=== PATIENT | male | born 1955 | race Caucasian/White ===

== ENCOUNTER 2018-07-09 17:15 | Emergency (ER) | payer BC ==
[2018-07-09 18:12] LABS: BASO # 0.1 10^3/uL (0.0-0.2); EOS # 0.2 10^3/uL (0.0-0.50); EOS % 1.3 % (0.0-3.0); HEMATOCRIT 41.4 % (42.0-52.0); HEMOGLOBIN 13.6 g/dl (13.5-17.5); IMMATURE GRANULOCYTE % 0.4 % (0-3.0); LYMPH # 0.8 10^3/uL (1.5-4.5); LYMPH % 7.1 % (24.0-44.0); MEAN CORPUSCULAR HEMOGLOBIN 29.7 pg (27.0-33.0); MEAN CORPUSCULAR HGB CONC 32.9 g/dl (32.0-36.5); MEAN CORPUSCULAR VOLUME 90.4 fl (80.0-96.0); MONO # 0.6 10^3/uL (0.0-0.8); MONO % 4.9 % (0.0-5.0); NEUTROPHILS # 9.5 10^3/uL (1.8-7.7); NEUTROPHILS % 85.3 % (36.0-66.0); PLATELET COUNT, AUTOMATED 226 10^3/uL (150-450); RED BLOOD COUNT 4.58 10^6/uL (4.30-6.10); RED CELL DISTRIBUTION WIDTH 13.9 % (11.5-14.5); WHITE BLOOD COUNT 11.2 10^3/uL (4.0-10.0)
[2018-07-09 18:15] LABS: KETONE, URINE AUTO RFX NEGATIVE (NEGATIVE); LEUKOCYTE ESTERASE UR AUTO RFX NEGATIVE (NEGATIVE); MUCUS, URINE RFX SMALL (NEGATIVE); NITRITE, URINE AUTO RFX NEGATIVE (NEGATIVE); RBC, URINE AUTO RFX 3 /HPF (0-3); SPECIFIC GRAVITY UR AUTO RFX 1.013 (1.002-1.035); SQUAM EPITHELIAL CELL UR AURFX 0 /HPF (0-6); WBC, URINE AUTO RFX 0 /HPF (0-3)
[2018-07-09 18:39] LABS: ANION GAP 7 MEQ/L (8-16); BLOOD UREA NITROGEN 17 MG/DL (7-18); CALCIUM LEVEL 9.2 MG/DL (8.8-10.2); CARBON DIOXIDE LEVEL 25 MEQ/L (21-32); CHLORIDE LEVEL 107 MEQ/L (98-107); CREATININE FOR GFR 0.84 MG/DL (0.70-1.30); GLOMERULAR FILTRATION RATE > 60.0 (>49); GLUCOSE, FASTING 106 MG/DL (70-100); POTASSIUM SERUM 4.2 MEQ/L (3.5-5.1); SODIUM LEVEL 139 MEQ/L (136-145)
== END 2018-07-09 19:27 | disposition home or self-care (01) ==
LOC: M ED 17:15
DX: N40.0 Benign prostatic hyperplasia without lower urinary tract symptoms (principal); R33.9 Retention of urine, unspecified; R97.20 Elevated prostate specific antigen [PSA]; Z87.891 Personal history of nicotine dependence
CPT/HCPCS: 74176

== ENCOUNTER → 2018-07-18 | Outpatient (CLI) | payer BC | LOC: M SMT 15:32 | DX: R97.20 Elevated prostate specific antigen [PSA] (principal) | CPT/HCPCS: 84153 ==

== ENCOUNTER → 2018-07-29 | Outpatient (CLI) | payer BC | LOC: M SMT PRO 09:28 | DX: C61 Malignant neoplasm of prostate (principal); R33.9 Retention of urine, unspecified; R39.89 Other symptoms and signs involving the genitourinary system; R97.20 Elevated prostate specific antigen [PSA] | CPT/HCPCS: G0416 ==

== ENCOUNTER → 2018-08-13 | Outpatient (CLI) | payer BC ==
[~2018-08-13] MED LIST: ISOVUE-370 76% 100ML VIAL (Q9967) As Ordered
== END ==
LOC: M RAD 06:14
DX: C61 Malignant neoplasm of prostate (principal); K40.90 Unilateral inguinal hernia, without obstruction or gangrene, not specified as recurrent
CPT/HCPCS: Q9967

== ENCOUNTER → 2018-08-15 | Outpatient (CLI) | payer BC | LOC: M RAD 06:21 | DX: C61 Malignant neoplasm of prostate (principal) | CPT/HCPCS: 78306 ==

== ENCOUNTER → 2018-08-22 | Outpatient (CLI) | payer BC ==
[2018-08-22 16:12] LABS: PROSTATIC SPECIFIC AG MONITOR 3.1 NG/ML (< 4.0)
== END ==
LOC: M LAB 15:19
DX: C61 Malignant neoplasm of prostate (principal)
CPT/HCPCS: 84153

== ENCOUNTER → 2018-09-09 | Outpatient (CLI) | payer BC | LOC: M ONCR 12:32 | DX: C61 Malignant neoplasm of prostate (principal) | CPT/HCPCS: G0463 ==

== ENCOUNTER 2018-09-13 16:57 | Emergency (ER) | payer BC | END 2018-09-13 17:52 | disposition home or self-care (01) | LOC: M ED 16:57 | DX: T83.098A Other mechanical complication of other urinary catheter, initial encounter (principal); Y92.9 Unspecified place or not applicable; Y93.9 Activity, unspecified; C61 Malignant neoplasm of prostate; Z79.899 Other long term (current) drug therapy | CPT/HCPCS: 51700 ==

== ENCOUNTER → 2018-09-16 | Outpatient (CLI) | payer BC | LOC: M SMT 08:19 | DX: N39.0 Urinary tract infection, site not specified (principal) | CPT/HCPCS: 87186 ==

== ENCOUNTER 2018-10-01 09:39 | Outpatient (RCR) | payer BC ==
[~2018-10-01 09:39] MED LIST changes: -BACT800T5 PO
--- NOTE | 2018-10-03 10:21 | RADONC ---
RADIATION ONCOLOGY SIMULATION NOTE DATE OF SERVICE: 10/01/2018 CHART NUMBER: [id number] DIAGNOSIS: Adenocarcinoma of prostate. Stage III C, [id number], PSA 32.4, Shante score 9 (4 +5), grade group 5. ECOG performance status 1. SIMULATION NOTE: The patient was simulated today for a diagnosis of adenocarcinoma of the prostate. He was placed in a supine position and 3 mm images were obtained via a CT planning simulator. The images were captured through the area of the pelvis including detailed areas of the prostate. The patient tolerated his immobilization device and simulation satisfactorily with no untoward side effects or issues. The images will be appropriately contoured for appropriate radiation planning via IMRT/IGRT. Addendum: After reviewing the images there was noted to be excessive intraabdominal stool and air. I feel that we should repeat the simulation attempting to reduce this issue if possible. BENNIED
[2018-10-04] MEDS ORDERED: BACT800T5 PO (17:27)
== END 2018-10-06 ==
LOC: M ONCR 09:39
PROVIDERS: ATTEND Radiology Radiation Oncology
DX: C61 Malignant neoplasm of prostate (principal)

== ENCOUNTER → 2018-10-01 | Outpatient (REF) | payer BC ==
[~2018-10-01] MED LIST changes: +BACT800T5 PO; -ISOVUE-370 76% 100ML VIAL (Q9967) As Ordered; +TAMSULOSIN PO
[2018-10-01 10:32] LABS: HEMATOCRIT 39.8 % (42.0-52.0); HEMOGLOBIN 13.3 g/dl (13.5-17.5); MEAN CORPUSCULAR HEMOGLOBIN 30.4 pg (27.0-33.0); MEAN CORPUSCULAR HGB CONC 33.4 g/dl (32.0-36.5); MEAN CORPUSCULAR VOLUME 91.1 fl (80.0-96.0); PLATELET COUNT, AUTOMATED 338 10^3/uL (150-450); RED BLOOD COUNT 4.37 10^6/uL (4.30-6.10); WHITE BLOOD COUNT 8.3 10^3/uL (4.0-10.0)
== END ==
LOC: M LAB 10:17
PROVIDERS: ATTEND Radiology Radiation Oncology
DX: Z00.00 Encounter for general adult medical examination without abnormal findings (principal)

== ENCOUNTER 2018-10-04 15:39 | Emergency (ER) | payer BC ==
[~2018-10-04] VITALS: Ht 182.9 cm; Wt 63.6 kg
[2018-10-04 15:40] VITALS: BP 183/77
[2018-10-04 17:09] LABS: BLOOD UREA NITROGEN 16 MG/DL (7-18); CALCIUM LEVEL 8.9 MG/DL (8.8-10.2); CARBON DIOXIDE LEVEL 26 MEQ/L (21-32); CHLORIDE LEVEL 104 MEQ/L (98-107); CREATININE FOR GFR 0.89 MG/DL (0.70-1.30); GLOMERULAR FILTRATION RATE > 60.0 (>49); GLUCOSE, FASTING 108 MG/DL (70-100); POTASSIUM SERUM 4.2 MEQ/L (3.5-5.1); SODIUM LEVEL 138 MEQ/L (136-145)
[2018-10-04] MEDS ORDERED: BACT800T5 PO (17:27)
== END 2018-10-04 17:39 | disposition home or self-care (01) ==
LOC: M ED 15:39
DX: N30.00 Acute cystitis without hematuria (principal); T83.098A Other mechanical complication of other urinary catheter, initial encounter; Y92.9 Unspecified place or not applicable; Y93.9 Activity, unspecified; C61 Malignant neoplasm of prostate; Z72.0 Tobacco use; Z79.899 Other long term (current) drug therapy

== ENCOUNTER 2018-11-05 13:17 | Outpatient (RCR) | payer BC ==
[2018-10-08 08:47] LABS: HEMATOCRIT 40.7 % (42.0-52.0); HEMOGLOBIN 13.4 g/dl (13.5-17.5); LYMPH % 34.5 % (24.0-44.0); MEAN CORPUSCULAR HEMOGLOBIN 30.6 pg (27.0-33.0); MEAN CORPUSCULAR HGB CONC 32.9 g/dl (32.0-36.5); NEUTROPHILS # 4.3 10^3/uL (1.8-7.7); RED BLOOD COUNT 4.38 10^6/uL (4.30-6.10); WHITE BLOOD COUNT 8.2 10^3/uL (4.0-10.0)
--- NOTE | 2018-10-09 15:27 | RADONC ---
RADIATION ONCOLOGY SIMULATION NOTE DATE: 10/08/2018 CHART NUMBER: [id number] Mr. Cutler was taken to the CT scan for CT simulation of his prostate field. CT was accomplished without difficulty or discomfort. Radiation treatment planning is underway and radiation treatments will begin subsequently. This is our second attempt at undertaking CT simulation as he had a significant amount of feces in the field. Unfortunately, this has not changed and we will plan around this issue. An immobilization device was created and will be used throughout the course of treatment. I was physically present throughout the course of CT simulation.
--- NOTE | 2018-10-21 07:51 | RADONC ---
RADIATION ONCOLOGY PROGRESS NOTE DATE: 10/20/2018 CHART NUMBER: [id number] Mr. Cutler is presently at a dose of 540 cGy to his prostate and is tolerating treatments quite well at this point with no complaints related to his radiation therapy. He is having no urinary or bowel difficulties and no bone pain. The patient's review of systems is noncontributory. He denies nausea, vomiting, fevers, chills, night sweats, diplopia, headaches, anxiety or depression, anorexia, weight loss, visual disturbances, chest pain, urinary or bowel difficulties, bone pain, or neurological problems. PHYSICAL EXAMINATION: The patient's skin is in good condition with no evidence of radiation change present. There is no moist or dry desquamation. The remainder of his physical exam remains unchanged. Mr. Cutler is tolerating treatments quite well and radiation will continue as scheduled.
--- NOTE | 2018-10-27 16:27 | RADONC ---
RADIATION ONCOLOGY PROGRESS NOTE DATE: 10/27/2018 CHART NUMBER: [id number] PROGRESS NOTE: Mr. Cutler is presently at a dose of 1260 cGy to his prostate and is tolerating treatments quite well at this point with no complaints related to his radiation therapy. He has had no urinary or bowel difficulties and no bone pain. REVIEW OF SYSTEMS: The patient's review of systems is noncontributory. Denies nausea, vomiting, fevers, chills, night sweats, diplopia, headaches, anxiety or depression, anorexia, weight loss, visual disturbances, chest pain, urinary or bowel difficulties, bone pain, or neurological problems. PHYSICAL EXAMINATION: The patient's skin is in good condition with no evidence of radiation change present. There is no moist or dry desquamation. The remainder of his physical exam remains unchanged. Mr. Cutler is tolerating treatments quite well and radiation will continue as scheduled.
--- NOTE | 2018-11-03 15:55 | RADONC ---
RADIATION ONCOLOGY PROGRESS NOTE DATE: 11/03/2018 CHART NUMBER: [id number] Mr. Cutler is presently at a dose of 1980 cGy to his prostate and is tolerating treatments quite well at this point with no complaints related to his radiation therapy. He is having no urinary or bowel difficulties and no bone pain. The patient's review of systems is noncontributory. He denies nausea, vomiting, fevers, chills, night sweats, diplopia, headaches, anxiety or depression, anorexia, weight loss, visual disturbances, chest pain, urinary or bowel difficulties, bone pain, or neurological problems. PHYSICAL EXAMINATION: The patient's skin is in good condition with no evidence of moist or dry desquamation. The remainder of his physical exam remains unchanged. Mr. Cutler is tolerating treatments quite well and radiation will continue as scheduled.
[~2018-11-05 13:17] MED LIST changes: +BACT800T5 PO
== END 2018-11-06 ==
LOC: M ONCR 13:17
PROVIDERS: ATTEND Radiology Radiation Oncology
DX: C61 Malignant neoplasm of prostate (principal)

== ENCOUNTER → 2018-11-14 | Outpatient (REF) | payer BC ==
[2018-11-14 18:56] LABS: AMORPHOUS SEDIMENT SMALL (NEGATIVE); APPEARANCE, URINE CLOUDY (CLEAR); BACTERIA, URINE AUTO 1+ (NEGATIVE); BILIRUBIN, URINE AUTO NEGATIVE (NEGATIVE); BLOOD, URINE BLOOD 1+ (NEGATIVE); COLOR, URINE YELLOW (YELLOW); GLUCOSE, URINE (UA) AUTO NEGATIVE (NEGATIVE); KETONE, URINE AUTO NEGATIVE (NEGATIVE); LEUKOCYTE ESTERASE, URINE AUTO 3+ (NEGATIVE); MUCUS, URINE SMALL (NEGATIVE); NITRITE, URINE AUTO POSITIVE (NEGATIVE); PROTEIN, URINE AUTO 1+ mg/dL (NEGATIVE); RBC, URINE AUTO 26 /HPF (0-3); SPECIFIC GRAVITY URINE AUTO 1.013 (1.002-1.035); SQUAMOUS EPITHELIAL CELL UR AU 0 /HPF (0-6); UROBILINOGEN, URINE AUTO 0.2 mg/dL (0.0-2.0); WBC, URINE AUTO 68 /HPF (0-3)
== END ==
LOC: M SMT 17:06
PROVIDERS: ATTEND Urology
DX: N39.0 Urinary tract infection, site not specified (principal)

== ENCOUNTER → 2018-12-03 | Outpatient (REF) | payer BC ==
[2018-12-03 13:34] LABS: APPEARANCE, URINE MANUAL HAZY (CLEAR); BILIRUBIN, URINE MANUAL NEGATIVE (NEGATIVE); BLOOD URINE MANUAL POSITIVE (NEGATIVE); COLOR, URINE MANUAL LT YELLOW (YELLOW); GLUCOSE, URINE (UA) MANUAL NEGATIVE (NEGATIVE); KETONE, URINE MANUAL NEGATIVE (NEGATIVE); LEUKOCYTE ESTERASE, URINE MAN POSITIVE (NEGATIVE); NITRITE, URINE MANUAL NEGATIVE (NEGATIVE); PROTEIN, URINE MANUAL NEGATIVE (NEGATIVE); SPECIFIC GRAVITY,URINE MANUAL 1.005 (1.002-1.035); UROBILINOGEN, URINE MANUAL NORMAL (NORMAL)
[2018-12-03 13:44] LABS: WBC, URINE 40-50 /hpf (0-3)
[2018-12-03 13:45] LABS: AMORPHOUS SEDIMENT, URINE LARGE AMOUNT (NEGATIVE); BACTERIA, URINE LARGE AMOUNT; RBC, URINE 40-50 /hpf (0-3); SQUAMOUS EPITHELIAL CELL URINE NONE SEEN /hpf (SMALL AMT)
== END ==
LOC: M SMT 13:00
PROVIDERS: ATTEND Nurse Practitioner Family
DX: R30.0 Dysuria (principal)

== ENCOUNTER → 2018-12-04 | Outpatient (RCR) | payer BC ==
--- NOTE | 2018-11-11 13:30 | RADONC ---
RADIATION ONCOLOGY PROGRESS NOTE DATE OF SERVICE: 11/10/2018 CHART NUMBER: [id number] PROGRESS NOTE: Mr. Cutler is presently at a dose of 2520 cGy to his prostate and is tolerating treatments quite well at this point with no complaints related to his radiation therapy. He is having no urinary or bowel difficulties and no bone pain. REVIEW OF SYSTEMS: The patient's review of systems is noncontributory. He denies nausea, vomiting, fevers, chills, night sweats, diplopia, headaches, anxiety or depression, anorexia, weight loss, visual disturbances, chest pain, urinary or bowel difficulties, bone pain, or neurological problems. PHYSICAL EXAMINATION: The patient's skin is in good condition with no evidence of moist or dry desquamation. The remainder of his physical exam remains unchanged. Mr. Cutler is tolerating treatments quite well, and radiation will continue as scheduled.
--- NOTE | 2018-11-19 13:18 | RADONC ---
RADIATION ONCOLOGY PROGRESS NOTE DATE: 11/17/2018 CHART NUMBER: [id number] Mr. Cutler with a diagnosis of adenocarcinoma of the prostate is currently receiving local regional radiotherapy and has no complaints referable to his disease or to his treatments. Thus far he has achieved a dose of 3420 cGy of an anticipated 7920 cGy. REVIEW OF SYSTEMS: He denies any nausea, vomiting, diarrhea, dysuria, hematuria or blood per rectum. His energy level is such that he is able to maintain most day-to-day activities without any alteration of his lifestyle. The remaining review of systems is noncontributory. EXAMINATION FINDINGS: The patient is a well-appearing male in no acute distress. The physical examination is unchanged. IMPRESSION: Tolerating therapy well. PLAN: Treatments to continue. MTDD
--- NOTE | 2018-11-26 07:07 | RADONC ---
RADIATION ONCOLOGY PROGRESS NOTE DATE OF SERVICE: 11/24/2018 Mr. Cutler with a diagnosis of adenocarcinoma of prostate is currently receiving local regional radiotherapy and he has achieved a dose of 4320 cGy of an anticipated 7920 GC. He is tolerating his therapy reasonably well. Last week he was experiencing some dysuria, however he saw Dr. Prater and his dysuria has currently resolved after being placed on some antibiotics. He currently denies any symptoms related to his disease or treatments. REVIEW OF SYSTEMS: He specifically denies nausea, vomiting, diarrhea, dysuria, hematuria or blood per rectum. He also denies any diplopia, headaches, anxiety, depression, anorexia, weight loss or visual disturbances. EXAMINATION FINDINGS: The skin within the irradiated volume looks normal without evidence of desquamation or erythema. The remainder of the physical examination remains unchanged. IMPRESSION Tolerating therapy well. PLAN: Treatments to continue. MTDD
--- NOTE | 2018-12-02 09:20 | RADONC ---
RADIATION ONCOLOGY PROGRESS NOTE DATE OF SERVICE: 12/01/2018 CHART NUMBER: [id number]. PROGRESS NOTE: Mr. Cutler is presently at a dose of 5220 cGy to his prostate and is tolerating treatments quite well at this point with no complaints related to his radiation therapy. He is having no urinary or bowel difficulties and no bone pain. REVIEW OF SYSTEMS: The patient's review of systems is noncontributory. He denies nausea, vomiting, fevers, chills, night sweats, diplopia, headaches, anxiety or depression, anorexia, weight loss, visual disturbances, chest pain, urinary or bowel difficulties, bone pain, or neurological problems. PHYSICAL EXAMINATION: The patient's skin is in good condition with no evidence of moist or dry desquamation. The remainder of his physical exam remains unchanged. Mr. Cutler is tolerating treatments quite well, and radiation will continue as scheduled.
== END ==
LOC: M ONCR 11-10 15:19
PROVIDERS: ATTEND Radiology Radiation Oncology
DX: C61 Malignant neoplasm of prostate (principal)

== ENCOUNTER 2018-12-22 15:16 | Outpatient (RCR) | payer BC ==
--- NOTE | 2018-12-09 10:51 | RADONC ---
RADIATION ONCOLOGY PROGRESS NOTE: DATE: 12/08/2018 CHART NUMBER: [id number] Mr. Cutler is presently at a dose of 6120 cGy to his prostate and is tolerating treatments quite well at this point with no complaints related to his radiation therapy. He is having no urinary or bowel difficulties and no bone pain. REVIEW OF SYSTEMS: The patient's review of systems is noncontributory. He denies nausea, vomiting, fevers, chills, night sweats, diplopia, headaches, anxiety or depression, anorexia, weight loss, visual disturbances, chest pain, urinary or bowel difficulties, bone pain, or neurological problems. PHYSICAL EXAMINATION: The patient's skin is in good condition with no evidence of moist or dry desquamation. The remainder of his physical exam remains unchanged. Mr. Cutler is tolerating treatments quite well and radiation will continue as scheduled.
--- NOTE | 2018-12-17 07:06 | RADONC ---
RADIATION ONCOLOGY PROGRESS NOTE DATE: 12/15/2018 CHART NUMBER: [id number] Mr. Cutler is presently at a dose of 7020 cGy to his prostate and is tolerating treatments quite well at this point with no complaints related to his radiation therapy. He is having no urinary or bowel difficulties and no bone pain. The patient's review of systems is noncontributory. He denies nausea, vomiting, fevers, chills, night sweats, diplopia, headaches, anxiety or depression, anorexia, weight loss, visual disturbances, chest pain, urinary or bowel difficulties, bone pain, or neurological problems. PHYSICAL EXAMINATION: The patient's skin is in good condition with no evidence of moist or dry desquamation. The remainder of his physical exam remains unchanged. Mr. Cutler is tolerating treatments quite well and radiation will continue as scheduled.
--- NOTE | 2018-12-23 09:11 | RADONC ---
RADIATION ONCOLOGY TREATMENT SUMMARY DATE: 12/22/2018 CHART #: [id number] DIAGNOSIS: Prostate cancer. STAGE: III C, [id number], PSA 32.4, Crum Lynne score 9 (4-5), grade group 5. ECOG PERFORMANCE STATUS: 0. TREATMENT SUMMARY: Mr. Cutler is a very pleasant 63-year-old white male with the diagnosis what appears to be a stage III C, [id number], poorly differentiated, Crum Lynne score 9 (4-5) adenocarcinoma of prostate, grade group 5, with a PSA level of 32.40, who presented to us for consideration of definitive external beam radiation therapy with IMRT/IGRT. We treated the patient to his prostate for a total dose of 7920 cGy delivered in 44 fractions of 180 cGy each over 66 elapsed days from 10/16/2018 through 12/22/2018. The patient's prostate was treated on a linear accelerator utilizing a 6 MV photon beam via IMRT/IGRT. We initially treated the prostate, seminal vesicles and first echelon of lymph nodes for a dose of 4500 cGy delivered in 25 fractions of 180 cGy each. Following completion of that, 900 additional cGy was delivered to the prostate and seminal vesicles bringing the seminal vesicles to a total dose of 5400 cGy. We then coned down to the prostate itself delivering an additional 2520 cGy, bringing the prostate once again to a total dose of 7920 cGy. Mr. Cutler tolerated his treatments quite well with no difficulties related to his radiation therapy. He was able complete therapy as prescribed without interruption. I have scheduled the patient to see me again in 1 month for further followup. He will also continue to be followed by his other physicians as well. Thank you for allowing us to participate in the care of this very pleasant gentleman. If I could be of any further assistance or provide you with any information, please free to contact me anytime. As always warm regards. cc: MD Ralf Arora PA
== END 2019-01-04 ==
LOC: M ONCR 15:16
PROVIDERS: ATTEND Radiology Radiation Oncology
DX: C61 Malignant neoplasm of prostate (principal)

== ENCOUNTER → 2019-01-27 | Outpatient (CLI) | payer BC | LOC: M LAB 16:18 | PROVIDERS: ATTEND Radiology Radiation Oncology | DX: C61 Malignant neoplasm of prostate (principal) ==

== ENCOUNTER → 2019-01-28 | Outpatient (CLI) | payer BC ==
--- NOTE | 2019-02-03 13:13 | RADONC ---
RADIATION ONCOLOGY FOLLOWUP NOTE DATE: 01/28/2019 CHART NUMBER: [id number] DIAGNOSIS: Prostate cancer. STAGE: III C, [id number], PSA 32.4, Shante score 9 (4-5), grade group 5. ECOG PERFORMANCE STATUS: 0 FOLLOWUP NOTE: Mr. Cutler is a very pleasant 64-year-old white male with the diagnosis of what appears to be a stage III C, [id number], poorly differentiated, Sutton score 9 (4-5), adenocarcinoma prostate, grade group 5, with a PSA level of 32.40, who is presenting to us today for routine followup visit 1 month post completion of external beam radiation therapy. The patient presents today reporting that he is doing quite well with no complaints at this time related to his radiation therapy or disease. He is having no urinary or bowel difficulties and no bone pain. REVIEW OF SYSTEMS: The patient's review of systems is noncontributory. Denies nausea, vomiting, fevers, chills, night sweats, diplopia, headaches, anxiety or depression, anorexia, weight loss, visual disturbances, chest pain, urinary or bowel difficulties, bone pain, or neurological problems. PHYSICAL EXAMINATION: The patient is a well-developed, well-nourished male in no acute distress. HEENT exam is normocephalic, atraumatic. Extraocular movements are intact. There is no palpable cervical, supraclavicular, infraclavicular, axillary, or inguinal lymphadenopathy present. Lungs are clear to auscultation and percussion. Heart has a regular rate and rhythm. Abdomen is benign with no hepatosplenomegaly, masses, or tenderness. Rectal examination reveals a normal anal sphincter tone. His prostate is smooth with no evidence of nodularity. Skeletal examination reveals no tenderness to pressure or percussion of the bony skeleton. Extremities reveal no clubbing, cyanosis, or edema. Neurologic exam is grossly intact, as is the remainder of the physical examination. ASSESSMENT: The patient is clinically USHA at this time and will be seen by us again in 6 months for further followup. He will also continue be followed by his other physicians as well. cc: MD Ralf Arora PA
== END ==
LOC: M ONCR 15:05
PROVIDERS: ATTEND Radiology Radiation Oncology
DX: Z85.46 Personal history of malignant neoplasm of prostate (principal); Z92.3 Personal history of irradiation

== ENCOUNTER → 2019-07-27 | Outpatient (CLI) | payer BC | LOC: M LAB 15:33 | PROVIDERS: ATTEND Radiology Radiation Oncology | DX: C61 Malignant neoplasm of prostate (principal) ==

== ENCOUNTER → 2019-07-29 | Outpatient (CLI) | payer BC ==
--- NOTE | 2019-07-30 10:17 | RADONC ---
RADIATION ONCOLOGY FOLLOWUP NOTE DATE: 07/29/2019 CHART NUMBER: [id number] DIAGNOSIS: Prostate cancer. STAGE: III C, [id number], PSA 32.4, Shante score 9 (4+5), grade group 5. ECOG PERFORMANCE STATUS: 0 FOLLOWUP NOTE: Mr. Cutler is a 64-year-old man who was noted to be a stage III C, T2cN 0M0, poorly differentiated, Shante score 9 (4+5) adenocarcinoma of prostate, grade group 5, with a PSA level of 32.40. He presents today for routine followup visit after having completed his course of radiotherapy on 12/22/2018. He continues to do quite well and denies any nausea, vomiting, diarrhea, dysuria, hematuria or blood per rectum. His most recent PSA was 0.02 from a previous 0.06. He claims that in every other way he is doing quite well. EXAMINATION FINDINGS: Skin within the irradiated volume shows neither erythema nor desquamation. There is no palpable peripheral lymphadenopathy. Lungs are clear. Heart: Regular. Abdomen: Without evidence of hepatomegaly, masses, deep abdominal tenderness. Extremities: Without cyanosis, clubbing or edema. Rectal: Examination deferred at the patient's request, and his PSA value is so low that I would imagine an examination would not detect any significant abnormalities at this time. IMPRESSION: The patient appears to be doing well status post completion of his external beam radiotherapy with a quite low PSA result. PLAN: We would like to see him back on a p.r.n. basis and have encouraged him to return to his referring physicians as per their directions and instructions and continued PSA followup. Thank you for allowing us the opportunity of participation in the management of this patient. cc: MD Ralf Arora PA MTDD
== END ==
LOC: M ONCR 14:35
PROVIDERS: ATTEND Radiology Radiation Oncology
DX: C61 Malignant neoplasm of prostate (principal); Z92.3 Personal history of irradiation

== ENCOUNTER → 2020-05-17 | Outpatient (CLI) | payer BC | LOC: M LAB 07:46 | PROVIDERS: ATTEND Urology | DX: C61 Malignant neoplasm of prostate (principal) ==

== ENCOUNTER → 2020-11-17 | Outpatient (CLI) | payer BC | LOC: M LAB 15:31 | PROVIDERS: ATTEND Urology | DX: C61 Malignant neoplasm of prostate (principal) ==

== ENCOUNTER → 2021-12-18 | Outpatient (CLI) | payer MEDICARE | LOC: M LAB 12:50 | PROVIDERS: ATTEND Urology | DX: C61 Malignant neoplasm of prostate (principal) ==

== ENCOUNTER 2022-10-21 08:35 | Inpatient (IN) | payer MEDICARE ==
[~2022-10-21] VITALS: Ht 185.4 cm; Wt 51.5 kg
[2022-10-21] MEDS ORDERED: ISOVUE-370 76% 100ML VIAL As Ordered ONE (09:33)
[2022-10-21 09:35] LABS: BASO # 0.1 10^3/uL (0.0-0.2); BASO % 0.2 % (0.0-1.0); HEMATOCRIT 25.3 % (42.0-52.0); LYMPH # 0.8 10^3/uL (1.5-5.0); LYMPH % 3.7 % (24.0-44.0); MEAN CORPUSCULAR HEMOGLOBIN 15.8 pg (27.0-33.0); MEAN CORPUSCULAR HGB CONC 23.3 g/dl (32.0-36.5); MEAN CORPUSCULAR VOLUME 67.8 fl (80.0-96.0); MONO # 1.2 10^3/uL (0.0-0.8); NEUTROPHILS % 89.2 % (36.0-66.0); PLATELET COUNT, AUTOMATED 814 10^3/uL (150-450); RED BLOOD COUNT 3.73 10^6/uL (4.30-6.10); WHITE BLOOD COUNT 20.2 10^3/uL (4.0-10.0)
[2022-10-21 09:37] LABS: HEMOGLOBIN 5.9 g/dl (13.5-17.5)
[2022-10-21 09:44] LABS: INR 1.23; PROTHROMBIN TIME 15.8 SECONDS (12.5-14.5)
[2022-10-21 09:45] LABS: PARTIAL THROMBOPLASTIN TIME 37.1 SECONDS (24.8-34.2)
[2022-10-21 09:59] LABS: ALBUMIN 1.3 G/DL (3.2-5.2); BILIRUBIN,DIRECT 0.1 MG/DL (<0.4); BILIRUBIN,TOTAL 0.3 MG/DL (0.3-1.2); TOTAL PROTEIN 6.9 G/DL (5.7-8.2)
[2022-10-21 10:01] LABS: RSV AMPLIFICATION NEGATIVE (NEGATIVE)
[2022-10-21] MEDS ORDERED: cefTRIAXone SOD 1 GM in D5W MINI-BAG PLUS 50 ML IV ONE (10:35)
[2022-10-21] MEDS ORDERED: DOXYCYCLINE HYCLATE 100 MG in D5W MINI-BAG PLUS 100 ML IV ONE (10:35)
[2022-10-21] MEDS ORDERED: NS 1,000 ML IV SCH (10:35)
[2022-10-21] MEDS ORDERED: TAMS1CAP17 PO (12:11)
[2022-10-21] MEDS ORDERED: OMEGCAP4 PO (12:11)
[2022-10-21] MEDS ORDERED: ASPI81TA26 PO (12:11)
[2022-10-21] MEDS ORDERED: HOME MED LIST COMPLETE! XX SCH (12:15)
[2022-10-21] MEDS ORDERED: GLUCOSE 4GM CHEW TABLET PO PRN (12:35)
[2022-10-21] MEDS ORDERED: DEXTROSE 50% 50ML SYRINGE IV PRN (12:35)
[2022-10-21] MEDS ORDERED: THIAMINE 200MG 2ML VIAL IV ONE (12:35)
[2022-10-21] MEDS ORDERED: MULTIVITAMINS/MINERALS THERAP 1 TAB PO ONE (12:35)
[2022-10-21] MEDS ORDERED: ENOXAPARIN 40MG/0.4ML SYRINGE (J1650 PER 10MG) SC SCH (12:35)
[2022-10-21] MEDS ORDERED: GLUCAGON INJ 1MG VIAL SC PRN (12:35)
[2022-10-21 12:41] LABS: PERCENT SATURATION 2.8 % (19.7-50.0)
[2022-10-21 12:43] LABS: FERRITIN 169.9 NG/ML (10.5-307.3); FOLATE 6.7 NG/ML (>5.4)
[2022-10-21] MEDS: NS 1,000 ML IV SCH (13:17)
[2022-10-21] MEDS ORDERED: NS 1,000 ML IV ONE ×2 (17:25→22:00)
[2022-10-21] MEDS ORDERED: NS 500 ML IV ONE (17:25)
[2022-10-21] MEDS: PIPERACILLIN/TAZOBACTAM SOD 3.375 GM in D5W MINI-BAG PLUS 50 ML IV SCH ×2 (17:28→21:30)
[2022-10-21] MEDS: IRON SUCROSE 200 MG in NS 100 ML IV SCH (17:36)
[2022-10-21 19:23] LABS: HEMATOCRIT 31.3 % (42.0-52.0)
[2022-10-21 19:33] LABS: HEMOGLOBIN 8.3 g/dl (13.5-17.5)
[2022-10-21 20:00] VITALS: BP 112/72
[2022-10-21] MEDS: THIAMINE INJection 500 MG in NS 100 ML IV SCH (21:30)
[2022-10-22] VITALS (7 sets, daily range): BP systolic 93–121; BP diastolic 53–71
[2022-10-22] MEDS: THIAMINE INJection 500 MG in NS 100 ML IV SCH (04:16)
[2022-10-22] MEDS: NS 1,000 ML IV SCH (04:18)
[2022-10-22] MEDS: PIPERACILLIN/TAZOBACTAM SOD 3.375 GM in D5W MINI-BAG PLUS 50 ML IV SCH ×4 (05:33→21:49)
[2022-10-22 06:14] LABS: BASO % 0.1 % (0.0-1.0); HEMATOCRIT 29.7 % (42.0-52.0); LYMPH # 0.4 10^3/uL (1.5-5.0); LYMPH % 1.6 % (24.0-44.0); MEAN CORPUSCULAR HEMOGLOBIN 19.4 pg (27.0-33.0); MEAN CORPUSCULAR HGB CONC 26.9 g/dl (32.0-36.5); MEAN CORPUSCULAR VOLUME 71.9 fl (80.0-96.0); MONO # 0.9 10^3/uL (0.0-0.8); MONO % 3.7 % (2.0-8.0); NEUTROPHILS # 22.9 10^3/uL (1.5-8.5); NEUTROPHILS % 93.8 % (36.0-66.0); PLATELET COUNT, AUTOMATED 636 10^3/uL (150-450); RED BLOOD COUNT 4.13 10^6/uL (4.30-6.10); WHITE BLOOD COUNT 24.4 10^3/uL (4.0-10.0)
[2022-10-22 06:18] LABS: MAGNESIUM LEVEL 2.2 MG/DL (1.8-2.4)
[2022-10-22 06:20] LABS: BLOOD UREA NITROGEN 28 MG/DL (9-23); CALCIUM LEVEL 8.8 MG/DL (8.3-10.6); CARBON DIOXIDE LEVEL 20 MMOL/L (20-31); CHLORIDE LEVEL 108 MMOL/L (98-107); CREATININE FOR GFR 0.66 MG/DL (0.70-1.30); GLOMERULAR FILTRATION RATE > 60.0 (>49); GLUCOSE, FASTING 99 MG/DL (74-106); PHOSPHORUS LEVEL 3.6 MG/DL (2.4-5.1); POTASSIUM SERUM 4.6 MMOL/L (3.5-5.1); SODIUM LEVEL 139 MMOL/L (136-145)
[2022-10-22 08:27] LABS: FREE T3 0.9 PG/ML (2.3-4.2); FREE T4 0.67 NG/DL (0.89-1.76); THYROID STIMULATING HORMONE 8.427 uIU/ML (0.55-4.78)
[2022-10-22] MEDS: ENOXAPARIN 30MG/0.3ML SYRINGE (J1650 PER 10MG) SC SCH (09:15)
[2022-10-22] MEDS ORDERED: cefTRIAXone SOD 1 GM in D5W MINI-BAG PLUS 50 ML IV SCH (11:00)
[2022-10-22] MEDS: LEVOTHYROXINE 25MCG TABLET (0.025MG) PO SCH (12:00)
[2022-10-22] MEDS ORDERED: SALIVA SUBSTITUTE(MOUTHKOTE) BTL MT PRN (12:25)
[2022-10-22] MEDS ORDERED: LIDOCAINE 1% MDV 20ML VIAL As Ordered ONE (13:09)
[2022-10-22] MEDS ORDERED: VARIBAR PUDDING 40% w/v 230ML TUBE As Ordered ONE (13:49)
[2022-10-22] MEDS ORDERED: BARIUM SULFATE 700 MG TABLET (E-Z-DISK) As Ordered ONE (13:49)
[2022-10-22] MEDS ORDERED: VARIBAR NECTAR 40% w/v 240ML SUSP BTL As Ordered ONE (13:49)
[2022-10-22] MEDS ORDERED: E-Z-PAQUE 96% w/w SUSP 176GM BTL As Ordered ONE (13:49)
[2022-10-22] MEDS ORDERED: ACETAMINOPHEN 1000MG 100ML IV BAG IV ONE (16:50)
[2022-10-22] MEDS: IRON SUCROSE 200 MG in NS 100 ML IV SCH (17:42)
[2022-10-22] MEDS: TAMSULOSIN 0.4 MG CAP PO SCH (21:49)
[2022-10-23] VITALS: BP 109/54
[2022-10-23] MEDS: DOXYCYCLINE HYCLATE 100 MG in D5W MINI-BAG PLUS 100 ML IV SCH ×3 (00:35→23:34)
[2022-10-23 04:00] VITALS: BP 120/56
[2022-10-23] MEDS: PIPERACILLIN/TAZOBACTAM SOD 3.375 GM in D5W MINI-BAG PLUS 50 ML IV SCH ×4 (04:59→21:28)
[2022-10-23 05:50] LABS: BASO % 0.1 % (0.0-1.0); HEMOGLOBIN 7.8 g/dl (13.5-17.5); LYMPH # 0.7 10^3/uL (1.5-5.0); LYMPH % 3.3 % (24.0-44.0); MEAN CORPUSCULAR VOLUME 73.2 fl (80.0-96.0); MONO # 1.3 10^3/uL (0.0-0.8); MONO % 6.3 % (2.0-8.0); NEUTROPHILS # 18.6 10^3/uL (1.5-8.5); NEUTROPHILS % 89.3 % (36.0-66.0); PLATELET COUNT, AUTOMATED 624 10^3/uL (150-450); WHITE BLOOD COUNT 20.8 10^3/uL (4.0-10.0)
[2022-10-23] MEDS: LEVOTHYROXINE 25MCG TABLET (0.025MG) PO SCH (05:51)
[2022-10-23 06:15] LABS: MAGNESIUM LEVEL 2.1 MG/DL (1.8-2.4)
[2022-10-23 06:18] LABS: BLOOD UREA NITROGEN 25 MG/DL (9-23); CARBON DIOXIDE LEVEL 22 MMOL/L (20-31); CHLORIDE LEVEL 107 MMOL/L (98-107); CREATININE FOR GFR 0.69 MG/DL (0.70-1.30); GLOMERULAR FILTRATION RATE > 60.0 (>49); GLUCOSE, FASTING 64 MG/DL (74-106); PHOSPHORUS LEVEL 3.3 MG/DL (2.4-5.1); SODIUM LEVEL 139 MMOL/L (136-145)
[2022-10-23 07:27] LABS: LDH LACTATE DEHYDROGENASE 291 U/L (120-246)
[2022-10-23 07:39] VITALS: BP 100/57
[2022-10-23 08:17] LABS: ERYTHROCYTE SEDIMENTATION RATE 125 mm/hr (0-20)
[2022-10-23] MEDS: ENOXAPARIN 30MG/0.3ML SYRINGE (J1650 PER 10MG) SC SCH (10:30)
[2022-10-23 15:59] VITALS: BP 99/52
[2022-10-23 21:00] VITALS: BP 109/55
[2022-10-23] MEDS: MIRTAZAPINE 15 MG TAB PO SCH (21:27)
[2022-10-23] MEDS: TAMSULOSIN 0.4 MG CAP PO SCH (21:27)
[2022-10-24] MEDS: PIPERACILLIN/TAZOBACTAM SOD 3.375 GM in D5W MINI-BAG PLUS 50 ML IV SCH ×2 (04:21→10:21)
[2022-10-24 05:44] VITALS: BP 116/57
[2022-10-24] MEDS: LEVOTHYROXINE 25MCG TABLET (0.025MG) PO SCH (06:36)
[2022-10-24 08:27] VITALS: BP 109/52
[2022-10-24] MEDS: ENOXAPARIN 30MG/0.3ML SYRINGE (J1650 PER 10MG) SC SCH (10:22)
[2022-10-24] MEDS ORDERED: ONDANSETRON 4MG 2ML VIAL IV PRN (14:40)
[2022-10-24] MEDS ORDERED: HYOSCYAMINE SULFATE 0.125 MG SUBL TABLET PO PRN (14:40)
[2022-10-24] MEDS ORDERED: LORazepam 2 MG/ML 1ML VIAL IV PRN (14:40)
[2022-10-24] MEDS ORDERED: ONDANSETRON 4MG ORAL DISINTEGRATING TAB PO PRN (14:40)
[2022-10-24] MEDS ORDERED: ACETAMINOPHEN 650MG SUPP PR PRN (14:40)
[2022-10-24] MEDS ORDERED: FLEET ENEMA PR PRN (14:40)
[2022-10-24] MEDS ORDERED: BISACODYL 10MG SUPP PR PRN (14:40)
[2022-10-24] MEDS ORDERED: ACETAMINOPHEN TAB 650MG DOSE (2X325MG) PO PRN (14:40)
[2022-10-24] MEDS: LORazepam 1 MG TAB PO PRN (18:10)
[2022-10-24] MEDS: MORPHINE 2 MG/ML 1ML VIAL IV PRN (19:39)
[2022-10-24] MEDS: MIRTAZAPINE 15 MG TAB PO SCH (21:56)
[2022-10-25] MEDS: MORPHINE 2 MG/ML 1ML VIAL IV PRN (10:19)
[2022-10-25] MEDS: SCOPOLAMINE 1MG TRANSDERMAL PATCH TOP PRN (13:23)
[2022-10-25] MEDS: MIRTAZAPINE 15 MG TAB PO SCH (22:00)
[2022-10-26] MEDS: MORPHINE 2 MG/ML 1ML VIAL IV PRN (06:07)
[2022-10-26] MEDS: MIRTAZAPINE 15 MG TAB PO SCH (20:07)
[2022-10-27] MEDS: MORPHINE 2 MG/ML 1ML VIAL IV PRN ×3 (04:45→20:37)
[2022-10-27] MEDS: MIRTAZAPINE 15 MG TAB PO SCH (20:37)
[2022-10-28] MEDS: MORPHINE 2 MG/ML 1ML VIAL IV PRN ×2 (05:10→10:22)
[2022-10-28] MEDS: ATROPINE SULFATE 1% OPHTH SOLN 2ML BTL SL PRN ×3 (05:54→23:53)
[2022-10-28] MEDS: SCOPOLAMINE 1MG TRANSDERMAL PATCH TOP PRN (10:24)
[2022-10-28] MEDS: MORPHINE 10MG/0.5ML ORAL CONCENTRATE SOLUTION U/D SL PRN ×2 (17:39→20:31)
[2022-10-28] MEDS: MIRTAZAPINE 15 MG TAB PO SCH (19:27)
[2022-10-28] MEDS: LORazepam 1 MG TAB PO PRN (20:31)
[2022-10-29] MEDS: LORazepam 1 MG TAB PO PRN ×5 (03:07→23:32)
[2022-10-29] MEDS: MORPHINE 10MG/0.5ML ORAL CONCENTRATE SOLUTION U/D SL PRN ×6 (03:08→23:33)
[2022-10-29] MEDS: ATROPINE SULFATE 1% OPHTH SOLN 2ML BTL SL PRN ×2 (03:09→05:55)
[2022-10-29] MEDS: MIRTAZAPINE 15 MG TAB PO SCH (21:00)
== END 2022-10-30 06:20 | disposition expired | DRG 180 ==
LOC: M ED 08:35 → M ED INP 11:41 → M PCU 19:55 → M MS5PR 10-26 17:43
PROVIDERS: ADMIT Internal Medicine; ATTEND Internal Medicine
PROC: 0CJS8ZZ Inspection of Larynx, Via Natural or Artificial Opening Endoscopic (ICD-10-PCS; principal; 2022-10-21)
PROC: 30233N1 Transfusion of Nonautologous Red Blood Cells into Peripheral Vein, Percutaneous Approach (ICD-10-PCS; 2022-10-21)
DX: C34.90 Malignant neoplasm of unspecified part of unspecified bronchus or lung (principal); E43 Unspecified severe protein-calorie malnutrition; J96.01 Acute respiratory failure with hypoxia; J15.6 Pneumonia due to other Gram-negative bacteria; J69.0 Pneumonitis due to inhalation of food and vomit; E87.20 Acidosis, unspecified; R64 Cachexia; C77.0 Secondary and unspecified malignant neoplasm of lymph nodes of head, face and neck; D50.9 Iron deficiency anemia, unspecified; R53.1 Weakness; R63.0 Anorexia; D47.3 Essential (hemorrhagic) thrombocythemia; J38.01 Paralysis of vocal cords and larynx, unilateral; F17.210 Nicotine dependence, cigarettes, uncomplicated; F32.A Depression, unspecified; Z66 Do not resuscitate; Z79.82 Long term (current) use of aspirin; E03.9 Hypothyroidism, unspecified; Z51.5 Encounter for palliative care